=== PATIENT | male | born 1965 | race Caucasian/White ===

== ENCOUNTER 2019-01-11 07:52 | Day surgery (SDC) | payer BC ==
[2019-01-04 16:21] VITALS: BMI 27.7
[2019-01-11] MEDS ORDERED: MIDAZOLAM HCL 2 MG/2 ML SINGLE DOSE VIAL ONE (08:46)
[2019-01-11] MEDS ORDERED: PROPOFOL 20 ML ONE ×2 (08:46→09:54)
[2019-01-11] MEDS ORDERED: LIDOCAINE HCL/PF 2% SDV 5ML VIAL ONE (08:47)
[2019-01-11] MEDS ORDERED: DEXAMETHASONE SOD PHOSPHATE 4 MG/1 ML VIAL ONE (08:47)
[2019-01-11] MEDS ORDERED: ONDANSETRON 4 MG/2 ML VIAL ONE (08:47)
[2019-01-11] MEDS ORDERED: LIDOCAINE HCL 2% (50ML VIAL) INF ONE (09:47)
[2019-01-11 11:01] VITALS: TEMP 97.6
[2019-01-11 11:25] VITALS: BP 108/74; PULSE 54
[2019-01-11] MEDS ORDERED: ACETAMINOPHEN 325 MG TABLET (FP) PO PRN (13:39)
[2019-01-11] MEDS ORDERED: oxyCODONE HCL 5 MG TABLET PO PRN ×2 (13:39)
[2019-01-11] MEDS ORDERED: ONDANSETRON 4 MG/2 ML VIAL IVPUSH PRN (13:39)
[2019-01-11] MEDS ORDERED: LACTATED RINGERS SOLUTION 1,000 ML IV SCH (13:45)
--- NOTE | 2019-01-16 12:53 | PATH ---
Surgical Pathology Report Patient Name: AGNES EMANUEL [facility]. Rec. #: [id number] /Age/Gender: 1965 (Age: 53) / M Account: [id number] Location: [facility] Taken: 01/11/2019 Received: 01/11/2019 Reported: 01/16/2019 Physicians: Dennis Soriano M.D. Specimen(s) Received RIGHT LONG FINGER MASS Clinical History Right long finger mass Final Diagnosis Right long finger, mass, excision: Schwannoma. (See note). Note: Immunohistochemical stains performed at [place], [place] show the following results: the lesional cells are positive for S100 while negative for SMM-HC, SMA, desmin and CD34. This immunoprofile supports the diagnosis. Electronically Signed Margot Alcocer M.D. Gross Description Received in formalin, labeled "right long finger mass" is a 1.5 x 1.3 x 0.8 cm portion of glistening white fibrous-appearing round mass/nodule. Sectioning reveals homogenous hussein-white cut surface. The specimen is inked, serially sectioned and entirely submitted in two cassettes.
--- NOTE | 2019-01-16 19:41 | OP ---
DATE OF OPERATION: 01/11/2019 PREOPERATIVE DIAGNOSIS: Right long finger mass. 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 OPERATIVE PROCEDURE: Right long finger nerve sheath tumor excision plus internal neurolysis of the digital nerve. SURGEON: Yohana Ward M.D. VARNISHER APPRENTICE: Peter Daly ANESTHESIA: General anesthesia. COMPLICATIONS: None. ESTIMATED BLOOD LOSS: Minimal. INDICATION FOR PROCEDURE: The patient is a 53-year-old male with the above findings indicated for operative treatment. Risks, benefits, and alternatives were discussed with patient at length, proper informed consent was obtained. DESCRIPTION OF PROCEDURE: After proper identification of the patient and correct operative site, patient was brought to the operating room and placed supine on the operating room table, all bony prominences well padded. Right upper extremity was prepped and draped in the usual sterile fashion. Well padded tourniquet was placed with a sterile prep. Esmarch bandage to exsanguinate the right upper extremity. Tourniquet inflated to 250 mmHg. A jeffrey-Wil incision was made over the radial aspect of the finger proximal side and extended to the metatarsophalangeal joint proximally and to the PIP joint distally. The mass was found to be a nerve sheath tumor and careful dissection was performed with internal neurolysis using loop magnification. Mass was shelled out from the radial digital nerve leaving all the fascicles of the actual nerve intact. These were significantly stretched but not damaged otherwise. These were significantly stretched by the tumor, but otherwise not damaged during the procedure. Biopsy went for pathological examination. Wound was irrigated and repaired with 5-0 suture. Sterile dressings were applied. The patient was reversed from anesthesia and brought to recovery in stable condition, he tolerated the procedure well. Carlos Brewer, the assistant softball coach, was integral throughout the procedure. Procedure could not have been performed without a skilled operative assistant softball coach. YOHANA WARD M.D. [id number]
== END 2019-01-11 11:33 | disposition home or self-care (01) ==
LOC: FASU 07:52
PROVIDERS: ATTEND Orthopaedic Surgery Hand Surgery
PROC: 01N60ZZ Release Radial Nerve, Open Approach (ICD-10-PCS; 2019-01-11)
PROC: 01B Peripheral Nervous System, Excision (ICD-10-PCS; principal; 2019-01-11 09:54)
DX: D36.12 Benign neoplasm of peripheral nerves and autonomic nervous system, upper limb, including shoulder (principal)
CPT/HCPCS: 88305-TC